=== PATIENT | female | born 1925 | race Caucasian/White ===

== ENCOUNTER 2016-05-23 19:03 | Emergency (ER) | payer OTHER ==
[~2016-05-23] VITALS: Ht 154.9 cm; Wt 67.6 kg
[~2016-05-23 19:03] MED LIST: ADULT LOW DOSE81 M1 PO; ADULT LOW STREN81 M2 PO; ALPHAGAN P100 DROP/1 BOTH EYES; APRESOLINE10 MG PO; ASPIR 8181 MG PO; ASPIRIN81 M2; CALTRATE 6001 TABLET PO; CENTRUM SILVER1 EAC3 PO; CRANBERRY; CRANBERRY TAB; DURICEF1 GM PO; Fish Oil PO; HYZAAR 100-11 TABLET PO; LASIX20 MG PO; LIDODERM 5% P1 PATCH TD; LO-DOSE ASPIRIN81 M1 PO; LOPRESSOR25 MG PO; LOPRESSOR50 MG PO; Lexapro PO; MECLIZINE HCL25 MG PO; METOPROLOL TART25 MG PO; MICARDIS80 MG PO; OMEGA 3 1,0001 EACH PO; OMEGA RED PO; PHENERGAN12.5 M1 PO; PREDNISONE5 MG; TYLENOL EXTRA500 MG PO; TYLENOL OTC; TYLENOL REGULA325 MG PO; Tylenol Extra Streng PO; ULTRAM50 MG PO; Ultram PO; VITAMIN D1000 INTUN PO; VITAMIN D1000 UNIT PO; ZOFRAN4 MG PO; [UNRECOGNIZED DRUG - OTHER]; predniSONE PO
[2016-05-23] MEDS ORDERED: ALPHAGAN P100 DROP/1 BOTH EYES (20:14)
[2016-05-23] MEDS ORDERED: LO-DOSE ASPIRIN81 M2 PO (20:15)
[2016-05-23] MEDS ORDERED: CALTRATE PLUS1 EACH PO ×2 (20:16→20:17)
[2016-05-23] MEDS ORDERED: HYDRALAZINE HCL10 MG PO (20:16)
[2016-05-23] MEDS ORDERED: CENTRUM SILVER1 EAC3 PO (20:17)
[2016-05-23] MEDS ORDERED: FUROSEMIDE20 MG PO (20:18)
[2016-05-23 22:00] VITALS: BP 168/90
== END 2016-05-23 22:35 | disposition home or self-care (01) ==
LOC: EME → EDBD 19:03 → EME 19:03
DX: M25.512 Pain in left shoulder (principal); M25.552 Pain in left hip; I10 Essential (primary) hypertension; W01.0XXA Fall on same level from slipping, tripping and stumbling without subsequent striking against object, initial encounter; E78.5 Hyperlipidemia, unspecified; I25.2 Old myocardial infarction; K21.9 Gastro-esophageal reflux disease without esophagitis; Z79.82 Long term (current) use of aspirin
CPT/HCPCS: 71010; 72170; 73030; 73060; 73552; 99281; 99284

== ENCOUNTER 2016-12-11 19:27 | Inpatient (IN) | payer OTHER ==
[~2016-12-11] VITALS: Ht 154.9 cm; Wt 63.7 kg
[~2016-12-11 19:27] MED LIST changes: +CALTRATE PLUS1 EACH PO; +FUROSEMIDE20 MG PO; +HYDRALAZINE HCL10 MG PO; +LO-DOSE ASPIRIN81 M2 PO
[2016-12-11 20:21] LABS: EOSINOPHIL (%) 1.7 % (0-5); EOSINOPHIL COUNT 0.1 K/uL (0-0.3); HEMATOCRIT 42.6 % (36.0-46.0); IMMATURE GRANULOCYTE (%) 0.2 % (0.0-0.7); INSTRUMENT ABS NEUTROPHIL CT 4.1 K/uL; LYMPHOCYTE COUNT 1.6 K/uL (1.0-2.8); MCH 26.8 PG (29.0-34.0); MCHC 31.7 G/DL (30.0-36.0); MCV 84.7 FL (83-99); MONOCYTE COUNT 0.5 K/uL (0-0.8); NEUTROPHIL (%) 64.6 % (45-76); NEUTROPHIL COUNT 4.1 K/uL (1.8-6.4); PLATELET COUNT 155 K/uL (156-360); RBC DIS.WIDTH-CV 14.3 % (11.8-14.6); RBC DIS.WIDTH-SD 44.2 % (39-53); RED BLOOD COUNT 5.03 M/uL (3.80-5.20); WHITE BLOOD COUNT 6.4 K/uL (4.1-10.2)
[2016-12-11 20:26] LABS: INTER. NORMALIZED RATIO 1.1; PROTHROMBIN TIME 11.7 SEC (10.2-12.9)
[2016-12-11 20:31] LABS: CHLORIDE 103 mEq/L (99-109); POTASSIUM 3.9 mEq/L (3.7-5.4); SODIUM 142 mEq/L (136-147)
[2016-12-11 20:33] LABS: GLUCOSE 90 mg/dL (70-99)
[2016-12-11 20:34] LABS: ANION GAP 12 MEQ/L (2-14)
[2016-12-11 20:35] LABS: TOTAL BILIRUBIN 0.6 mg/dL (0.0-1.0)
[2016-12-11 20:36] LABS: ALKALINE PHOSPHATASE 55 IU/L (3-129)
[2016-12-11 20:37] LABS: GFR ESTIMATE (CALCULATED) 35 mL/min/
[2016-12-11 20:38] LABS: UREA NITROGEN (BUN) 27 mg/dL (9-23)
[2016-12-11] MEDS ORDERED: BESIVANCE5 ML LEFT EYE ×2 (23:08→23:09)
[2016-12-11] MEDS ORDERED: MEGARED OMEGA-1 EACH PO (23:08)
[2016-12-11] MEDS ORDERED: ILEVRO1.7 ML LEFT EYE (23:09)
[2016-12-12 01:54] VITALS: BP 149/72
[2016-12-12 03:14] LABS: HEMATOCRIT 38.3 % (36.0-46.0)
[2016-12-12 03:25] LABS: CHLORIDE 107 mEq/L (99-109); POTASSIUM 3.5 mEq/L (3.7-5.4); SODIUM 138 mEq/L (136-147)
[2016-12-12 03:26] LABS: GLUCOSE 106 mg/dL (70-99)
[2016-12-12 03:28] LABS: ANION GAP 6 MEQ/L (2-14)
[2016-12-12 03:30] LABS: GFR ESTIMATE (CALCULATED) 41 mL/min/
[2016-12-12 03:31] LABS: UREA NITROGEN (BUN) 22 mg/dL (9-23)
[2016-12-12 07:33] VITALS: BP 170/90
[2016-12-12 10:22] VITALS: BP 140/67
[2016-12-12 10:47] LABS: HEMATOCRIT 39.1 % (36.0-46.0); MCV 86.1 FL (83-99)
[2016-12-12 15:28] VITALS: BP 152/67
[2016-12-12 23:51] VITALS: BP 145/64
[2016-12-13 00:45] LABS: INTER. NORMALIZED RATIO 1.2; PROTHROMBIN TIME 13.1 SEC (10.2-12.9)
[2016-12-13 04:03] VITALS: BP 140/61
[2016-12-13 06:47] LABS: HEMATOCRIT 36.7 % (36.0-46.0); MCV 85.9 FL (83-99)
[2016-12-13 08:18] VITALS: BP 140/65
== END 2016-12-13 14:56 | disposition home or self-care (01) | DRG 392 ==
LOC: EME 19:27 → 5EAST 23:46 → EDOF 23:46 → ENRESERV 23:50 → 5EAST 12-12 01:26
PROVIDERS: Emergency Medicine; Hospitalist; Student in an Organized Health Care Education/Training Program
DX: K52.9 Noninfective gastroenteritis and colitis, unspecified (principal); K92.1 Melena; I12.9 Hypertensive chronic kidney disease with stage 1 through stage 4 chronic kidney disease, or unspecified chronic kidney disease; N18.3 Chronic kidney disease, stage 3 (moderate); E78.5 Hyperlipidemia, unspecified; I48.0 Paroxysmal atrial fibrillation; M81.0 Age-related osteoporosis without current pathological fracture; K21.9 Gastro-esophageal reflux disease without esophagitis; I34.1 Nonrheumatic mitral (valve) prolapse; M35.3 Polymyalgia rheumatica; H40.9 Unspecified glaucoma; I16.0 Hypertensive urgency; N28.9 Disorder of kidney and ureter, unspecified
CPT/HCPCS: 74176; 80048; 80053; 85014; 85018; 85025; 85610; 85730; 87493; 87506; 90686; 99281; 99285; J0744; J2405; S0030

== ENCOUNTER 2017-08-06 16:27 | Inpatient (IN) | payer OTHER ==
[~2017-08-06] VITALS: Ht 152.4 cm; Wt 53.4 kg
[~2017-08-06 16:27] MED LIST changes: +BESIVANCE5 ML LEFT EYE; +FISH OIL 1,0001 EAC7 PO; +ILEVRO1.7 ML LEFT EYE
[2017-08-06 17:54] LABS: APPEARANCE CLEAR ((CLEAR)); BILIRUBIN NEGATIVE; BLOOD SMALL; COLOR STRAW ((YELLOW)); GLUCOSE (STRIP) NEGATIVE; KETONES 5; LEUKOCYTES NEGATIVE; NITRITE NEGATIVE; PROTEIN (STRIP) NEGATIVE; UROBILINOGEN 0.2 MG/DL (0.2-1.0)
[2017-08-06 18:03] LABS: BACTERIA NONE SEEN /HPF; EPITHELIAL CELLS RARE /HPF; MUCUS TRACE /LPF; RED BLOOD CELLS 0-5 /HPF (0-5); WHITE BLOOD CELLS 0-5 /HPF (0-5)
[2017-08-06 18:19] LABS: ALBUMIN 3.9 g/dL (3.2-4.8); CHLORIDE 100 mEq/L (99-109); SODIUM 137 mEq/L (136-147)
[2017-08-06 18:21] LABS: GLUCOSE 99 mg/dL (70-99); TOTAL PROTEIN 7.1 g/dL (6.4-8.3)
[2017-08-06 18:23] LABS: TOTAL BILIRUBIN 0.9 mg/dL (0.0-1.0)
[2017-08-06 18:25] LABS: ALKALINE PHOSPHATASE 51 IU/L (3-129); CREATININE 1.3 mg/dL (0.6-1.3); GFR ESTIMATE (CALCULATED) 41 mL/min/
[2017-08-06 18:26] LABS: UREA NITROGEN (BUN) 21 mg/dL (9-23)
[2017-08-06 18:27] LABS: AST (GOT) 29 IU/L (2-34)
[2017-08-06 18:28] LABS: ALT (GPT) 15 IU/L (3-49)
[2017-08-06 18:58] LABS: HEMATOCRIT 38.1 % (36.0-46.0); HEMOGLOBIN 12.7 G/DL (11.9-15.5); MCH 27.8 PG (29.0-34.0); MCHC 33.3 G/DL (30.0-36.0); MCV 83.4 FL (83-99); PLATELET COUNT 126 K/uL (156-360); RBC DIS.WIDTH-CV 14.3 % (11.8-14.6); RBC DIS.WIDTH-SD 43.4 % (39-53); RED BLOOD COUNT 4.57 M/uL (3.80-5.20)
[2017-08-06] MEDS ORDERED: ADULT ASPIRIN R81 MG PO (19:37)
[2017-08-06 21:46] LABS: CREATINE KINASE 119 IU/L (1-294)
[2017-08-06 22:14] VITALS: BP 134/73
[2017-08-07 00:13] LABS: ERTH.SED.RATE 36 MM/HR (0-30)
[2017-08-07 03:33] VITALS: BP 148/90
[2017-08-07 05:24] LABS: BASOPHIL (%) 0.6 % (0-1); EOSINOPHIL (%) 4.3 % (0-5); EOSINOPHIL COUNT 0.2 K/uL (0-0.3); HEMATOCRIT 37.8 % (36.0-46.0); HEMOGLOBIN 12.3 G/DL (11.9-15.5); IMMATURE GRANULOCYTE (%) 0.2 % (0.0-0.7); LYMPHOCYTE (%) 14.4 % (15-42); LYMPHOCYTE COUNT 0.7 K/uL (1.0-2.8); MCH 27.2 PG (29.0-34.0); MCHC 32.5 G/DL (30.0-36.0); MCV 83.4 FL (83-99); MONOCYTE COUNT 0.5 K/uL (0-0.8); NEUTROPHIL (%) 69.5 % (45-76); NEUTROPHIL COUNT 3.2 K/uL (1.8-6.4); PLATELET COUNT 114 K/uL (156-360); RBC DIS.WIDTH-CV 14.3 % (11.8-14.6); RBC DIS.WIDTH-SD 43.6 % (39-53); RED BLOOD COUNT 4.53 M/uL (3.80-5.20); WHITE BLOOD COUNT 4.6 K/uL (4.1-10.2)
[2017-08-07 05:56] LABS: CHLORIDE 101 MEQ/L (99-109); CREATININE 1.3 MG/DL (0.6-1.3); GFR ESTIMATE (CALCULATED) 41 mL/min/; GLUCOSE 95 mg/dL (70-99); POTASSIUM 3.9 MEQ/L (3.7-5.4); SODIUM 139 MEQ/L (136-147); UREA NITROGEN (BUN) 20 mg/dL (9-23)
[2017-08-07 07:15] VITALS: BP 160/82
[2017-08-07 11:09] VITALS: BP 108/56
[2017-08-07 15:18] VITALS: BP 135/64
[2017-08-07 19:21] VITALS: BP 149/72
[2017-08-08] VITALS (7 sets, daily range): BP systolic 103–152; BP diastolic 55–73
[2017-08-09 08:03] VITALS: BP 171/78
[2017-08-09] MEDS ORDERED: CEFTIN250 MG PO (09:49)
== END 2017-08-09 13:15 | disposition home health service (06) | DRG 195 ==
LOC: EME 16:27 → 5SOUTH 20:48 → EDOF 20:48 → ENRESERV 20:49 → 5SOUTH 21:39
PROVIDERS: Hospitalist; Nurse Practitioner Family; Physician Assistant Medical
DX: J18.9 Pneumonia, unspecified organism (principal); I16.0 Hypertensive urgency; R09.02 Hypoxemia; K21.9 Gastro-esophageal reflux disease without esophagitis; I12.9 Hypertensive chronic kidney disease with stage 1 through stage 4 chronic kidney disease, or unspecified chronic kidney disease; N18.3 Chronic kidney disease, stage 3 (moderate); E78.5 Hyperlipidemia, unspecified; I48.0 Paroxysmal atrial fibrillation; I08.1 Rheumatic disorders of both mitral and tricuspid valves; I27.20 Pulmonary hypertension, unspecified; M35.3 Polymyalgia rheumatica; M81.0 Age-related osteoporosis without current pathological fracture; D69.6 Thrombocytopenia, unspecified; Z88.2 Allergy status to sulfonamides; I25.2 Old myocardial infarction; Z88.0 Allergy status to penicillin; Z79.82 Long term (current) use of aspirin
CPT/HCPCS: 71046; 80048; 80053; 81003; 82550; 82550 91; 83605; 85025; 85027; 85651; 87040; 87070; 87205; 87449; 92610 GN; 93005; 94799; 99202; 99281; 99285; J0456; J0696; J1644; J7030